=== PATIENT | female | born 2000 | race African-American/Black ===

== ENCOUNTER 2023-01-27 00:42 | Emergency (ER) | payer MEDICAID, SELFPAY ==
[2023-01-27 00:58] VITALS: BP 113/73; PULSE 55; RESP 20; TEMP 36.6; O2SAT 100
[2023-01-27 02:57] VITALS: BP 126/89; PULSE 80; RESP 16; O2SAT 100
--- NOTE | 2023-01-27 03:01 | ED.FEMALEGU ---
HPI - Female Genitourinary General Chief complaint: [employer]SC[employer]ER Stated complaint: vaginal bleeding Time Seen by Provider: 01/27/23 03:01 History of Present Illness HPI Narrative: Patient is a 22-year-old female presenting with vaginal bleeding. States that her last period was January 11. States that she had a positive test on January 23 and then started bleeding again on the . States that it is continued through today and she has lower abdominal cramping. She is concerned that she is miscarrying. She has been using Tylenol with improvement in her pain. No chest pain, shortness of breath, leg swelling, lightheadedness. No vomiting, dysuria. No other concerns. Related Data Allergies Allergy/AdvReac Type Severity Reaction Status Date / Time No Known Allergies Allergy Verified 01/27/23 03:02 Review of Systems Review of Systems: All systems reviewed & are unremarkable except as noted in HPI and below Exam Narrative: GENERAL: Well-appearing, No acute distress, pleasant cooperative HEAD: Normocephalic, atraumatic. EYES: PERRLA and EOMI. ENT: grossly unremarkable NECK: Supple. CHEST: No respiratory distress. HEART: Regular rate and rhythm ABDOMEN: Soft, nontender, nondistended EXTREMITIES: Normal range of motion. SKIN: Warm NEURO: Alert and oriented x3. PSYCH: Normal mood and affect. Course Vital Signs Vital signs: Vital Signs Temperature 97.8 F 01/27/23 00:58 Pulse Rate 55 L 01/27/23 00:58 Respiratory Rate 20 01/27/23 00:58 Blood Pressure 113/73 01/27/23 00:58 Pulse Oximetry 100 01/27/23 00:58 Oxygen Delivery Room Air 01/27/23 00:58 Temperature 97.8 F 01/27/23 00:58 Pulse Rate 80 01/27/23 02:57 Respiratory Rate 16 01/27/23 02:57 Blood Pressure 126/89 01/27/23 02:57 Pulse Oximetry 100 01/27/23 02:57 Oxygen Delivery Room Air 01/27/23 02:57 MDM - Female Genitourinary MDM Narrative Medical decision making narrative: 22-year-old female presenting with vaginal bleeding. test here is negative. vitals are stable. Exam is unremarkable. Abdomen is soft and benign. Patient is safe for outpatient management. 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 Appropriate return precautions given. Discharged in stable condition. Differential Diagnosis Differential diagnosis: Likely other (menstruation, abnormal uterine bleeding, miscarriage) Medical Records Attestation: I reviewed the patient's medical records. Lab Data Attestation: I reviewed the patient's lab results. Labs: UCG Bedside Result Negative Reference Range: Negative Critical Care Time Critical Care Time Critical Care Time: No Discharge Plan Discharge Clinical Impression: Abnormal vaginal bleeding Patient Disposition: Home, Self-Care Condition: Stable Instructions: Antibiotic Form, Abnormal (Dysfunctional) Uterine Bleeding (ED) Additional Instructions: The test today is negative. 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 We recommend Tylenol, Advil, or Aleve for pain control. If you are soaking more than 1 pad per hour for more than 2 hours, you develop chest pain or shortness of breath, or other concerning symptoms arise, please return to the ER. Follow-up/Referrals: PHYSICIAN,MATE FISHING VESSEL [Primary Care Provider] -
== END 2023-01-27 03:33 | disposition home or self-care (01) ==
LOC: ANHED 03:27
PROVIDERS: Emergency Provider Emergency Medicine
DX: N93.9 Abnormal uterine and vaginal bleeding, unspecified (principal)
CPT/HCPCS: 81025; 99283